=== PATIENT | male | born 1965 | race African-American/Black ===

== ENCOUNTER 2023-04-27 13:00 | Emergency (ER) | payer OTHER ==
[~2023-04-27] VITALS: Ht 180.3 cm; Wt 72.6 kg
[2023-04-27 13:15] VITALS: BP_SYST 172; PULSE 82; RESP 18; TEMP 97.8; O2SAT 97
== END 2023-04-27 15:03 | disposition left against medical advice (07) ==
LOC: SED 13:00
DX: M54.50 Low back pain, unspecified (principal); Z79.899 Other long term (current) drug therapy
CPT/HCPCS: 99281